=== PATIENT | female | born 1985 | race Asian ===

== ENCOUNTER 2020-07-15 20:37 | Inpatient (IN) ==
--- NOTE | 2020-07-15 20:48 | History & Physical Report ---
Date of Service July 15, 2020 Assessment & Plan (1) Supervision of elderly multigravida, antepartum: Admit to L&D. EFM/toco. Labs. IV. Patient would like epidural. She is aware she is progressing quickly, hopefully will have time for this. History of Present Illness Chief Complaint: labor Primary Care Provider: NO PCP 34yo @ 39 6/7, spontaneous labor. +FM, has had vaginal spotting worsening prior to arrival, no ROM complicated by advanced maternal age. Allergies Allergy/AdvReac Type Severity Reaction Status Date / Time No Known Allergies Allergy Verified 07/11/20 11:52 Home Medications Medication Instructions Recorded Confirmed Type prenat.vits,anjelica,bdq-[id number] 1 tab PO DAILY 05/16/20 07/11/20 History Patient History Medical History (Updated 06/24/20 @ 07:50 by Jose Kulkarni Jr, MD, FACOG) Abnormal biochemical finding on screening of mother, antepartum Encounter for supervision of normal in multigravida, antepartum Social History (Updated 05/16/20 @ 10:06 by Tata Smith) marital status: marital status details: shannan [phone] Current Living Situation: Spouse Current Living Situation Comment: lives with spouse and daughter, current occupational status: unemployed Review of Systems All systems reviewed & are unremarkable except as noted in HPI & below Physical Exam Physical Exam: SVE 9/100/0 Constitutional: WD/WN, vitals as above Respiratory: normal respiratory effort, lungs clear to auscultation no respiratory distress Cardiovascular: Rate/Rhythm: regular rate and regular rhythm Gastrointestinal (Abdomen): Inspection/Auscultation: abdomen normal to inspection Percussion/Palpation: abdomen soft; abdomen nontender Gravid. No s/s chorio or abruption. Skin: no rashes, warm and dry Psychiatric: A+Ox3, euthymic affect Results & Data ([facility]) Vital Signs (Past 12 Hours) Vital Signs Pulse BP 07/15/20 20:44 88 115/73 Monitoring External Monitor FHT Cat 1 [place] Q 4-5 Coding Level of Care Code None Diagnoses Supervision of elderly multigravida, antepartum O09.529
[2020-07-15] MEDS: LACTATED RINGER'S 1,000 ML IV PRN ×2 (20:52→22:03)
[2020-07-15 21:19] LABS: Hemoglobin 11.4 g/dL (12.0-16.0); Mean Corpuscular Hemoglobin 31.5 pg (25-34); Mean Corpuscular Hgb Conc 34.5 g/dL (32-36); Mean Corpuscular Volume 91.2 fL (80-100); Mean Platelet Volume 8.8 fL (7.4-10.4); Platelet Count 256 K/uL (130-400); RDW Coefficient of Variation 13.2 % (11.5-14.5); RDW Standard Deviation 43.8 fL (36.4-46.3); Red Blood Count 3.62 M/uL (4.2-5.4); White Blood Count 9.56 K/uL (4.8-10.8)
[2020-07-15] MEDS ORDERED: ePHEDrine sulfate 50 MG/ML AMP ONE (21:28)
[2020-07-15] MEDS ORDERED: SODIUM CHLORIDE 0.9% INJ 10 ML VIAL ONE (21:28)
[2020-07-15] MEDS ORDERED: fentaNYL citrate 100 MCG/2 ML VIAL ONE (21:29)
[2020-07-15] MEDS ORDERED: BUPIVACAINE 0.25% 30 ML VIAL ONE (21:29)
[2020-07-15] MEDS ORDERED: fentaNYL 2MCG/ML ROPIVACAINE 1.25MG/ML 100 ML BAG EPI ONE (21:31)
[2020-07-15] MEDS ORDERED: ePHEDrine sulfate 50 MG/ML AMP IV PRN (21:36)
[2020-07-15] MEDS ORDERED: ONDANSETRON INJ 2 MG/ML 2 ML VIAL IV PRN (21:36)
[2020-07-15] MEDS ORDERED: NALOXONE HCL 0.4 MG/1 ML VIAL/CARP IV PRN (21:36)
[2020-07-15] MEDS ORDERED: NALOXONE HCL 1 MG in SODIUM CHLORIDE 0.9% 1000ML 1,000 ML IV PRN (21:36)
[2020-07-15] MEDS ORDERED: diphenhydrAMINE 50 MG/ML VIAL IV PRN (21:36)
[2020-07-15] MEDS ORDERED: fentaNYL 2MCG/ML ROPIVACAINE 1.25MG/ML 100 ML BAG EPI PRN (21:36)
--- NOTE | 2020-07-15 21:38 | Anesthesiology Consultation ---
Date of Service July 15, 2020 Covid 19 negative today. Assessment & Plan Chart Review Chart Review: Patient NOT seen in Pre Admission Testing and Acceptable Risk for Labor Epidural Consults Requested none ASA ASA2 Proposed Anesthesia Anesthesia Type: Labor Epidural and CSE Risk / Benefits Reviewed With: PT / POA / Parent / Guardian, Accepts Plan and Informed Consent Obtained History Height/Weight Height: 5 ft 2.99 in Weight: 65.771 kg Allergies Allergy/AdvReac Type Severity Reaction Status Date / Time No Known Allergies Allergy Verified 07/15/20 20:57 Medications Home Medications Medication Instructions Recorded Confirmed Last Taken prenat.vits,anjelica,[id number]-[id number] 1 tab PO DAILY 05/16/20 07/15/20 Unknown Active Medications Generic Name Dose Route Start Last Admin Trade Name Freq PRN Reason Stop Dose Admin Lactated Ringer's 1,000 mls @ 125 mls/hr 07/15/20 20:43 07/15/20 20:52 Lr IV 07/17/20 20:42 999 mls/hr .Q8H PRN Administration L&D Protocol Protocol NPO Date Last Intake of Fluids: 07/15/20 Time Last Intake of Fluids: 14:00 Date Last Intake of Solids: 07/15/20 Time Last Intake of Solids: 14:00 Past Medical History Medical History Abnormal biochemical finding on screening of mother, antepartum Encounter for supervision of normal in multigravida, antepartum Exercise / Class Metabolic Activity II 4-5 Yardwork/Stairs/Walk up hill Past Anesthesia History No Hx of Anesthesia Complications and No Family Hx of Anesthesia Complications History of PONV No Hx of PONV and No Hx of Motion Sickness Social History Smoking Status: Never smoker Hx Alcohol Use: No Hx Substance Use: No substance use type: does not use Review of Systems no chest pain or sob Physical Exam Vital Signs Last Vital Signs Temp 36.5 C 07/15/20 21:04 Pulse 88 07/15/20 21:33 Resp 18 07/15/20 21:04 BP 115/73 07/15/20 21:04 Pulse Ox 98 07/15/20 21:33 ENMT Mouth: no TMJ abnormality Thyromental Distance: > or= 3.5 Finger Breadths Mallampati Class: II Neck normal visual inspection Respiratory normal respiratory effort Auscultation: lungs clear to auscultation bilaterally Cardiovascular Rate/Rhythm: regular rate and regular rhythm Musculoskeletal Spine: normal cervical ROM Neurologic moves all extremities Psychiatric Orientation: alert and oriented x 3 Testing Laboratory Results 07/15/20 21:12
--- NOTE | 2020-07-15 22:30 | Labor Progress Brief Note ---
Date of Service July 15, 2020 Subjective Patient is comfortable with epidural. FHT Cat 1 [place] Q 2 SVE 9.5/100/0 (anterior lip) AROM clear fluid. Anticipate . Assessment & Plan Admission and Anticipated Discharge Date Admission Date: July 15, 2020 Results & Data ([facility]) Vital Signs (Past 12 Hours) Vital Signs Temp Pulse Resp BP Pulse Ox 07/15/20 22:28 83 116/67 98 07/15/20 22:23 77 97 07/15/20 22:21 84 113/63 07/15/20 22:18 72 98 07/15/20 22:15 75 109/58 L 07/15/20 22:13 78 99 07/15/20 22:10 76 106/61 07/15/20 22:08 81 99 07/15/20 22:05 78 110/65 07/15/20 22:03 86 98 07/15/20 22:00 78 113/64 07/15/20 21:58 77 114/65 99 07/15/20 21:56 76 117/66 07/15/20 21:54 80 115/64 07/15/20 21:53 81 98 07/15/20 21:51 87 119/67 07/15/20 21:48 93 H 98 07/15/20 21:43 103 H 98 07/15/20 21:38 90 99 07/15/20 21:33 88 98 07/15/20 21:04 36.5 C 88 18 115/73 07/15/20 20:44 36.5 C 88 18 115/73 Coding Level of Care Code None
[2020-07-16] MEDS: OXYTOCIN 30 UNITS/500 ML BAG IV PRN ×2 (00:05→00:41)
--- NOTE | 2020-07-16 00:52 | Delivery Summary ---
Vaginal Delivery Summary Date of Service July 16, 2020 Vaginal Delivery Summary [facility] Vaginal Delivery Summary: Pre-delivery diagnoses: 34yo @ 40 0/7 Post-delivery diagnoses: same Procedure: spontaneous vaginal delivery Surgeon: Vanessa Bedoya DO Complications: none Findings: Viable male . Apgars: 8/9. Weight pending, please see nursery records. Estimated blood loss: 400ml Description of delivery: The patient progressed to complete with epidural anesthesia. She then began to push. She spontaneously vaginally delivered a viable from the cephalic presentation. The head delivered in ANNETTE position. The anterior shoulder delivered, followed by the posterior shoulder, followed by the body. The baby was placed on mother's abdomen and a spontaneous cry was heard. Delayed cord clamping was employed, and the cord was doubly clamped and cut. Cord blood was obtained. The placenta was delivered spontaneously intact with a 3-vessel cord. The uterus and vagina were swept of clots and debris. IV pitocin was given. The uterus became firm. The cervix, vagina, and perineum were inspected and a 2nd degree perineal lacerations was noted and repaired with 3-0 vicryl in standard fashion. There was a small area of bleeding at the anterior lip of the cervix - likely because the anterior cervical lip was swollen. Figure of eight suture of 3-0 vicryl placed, obtained hemostasis. Excellent hemostasis was observed. The mother and baby are recovering in stable and good condition in the room. Sponge, needle and instrument counts were correct x 2. Vanessa Bedoya DO [facility] Vaginal Delivery Charge Vaginal Delivery Codes: 92167 global code for the antepartum, delivery, and post- Delivery Type Details: [facility]
[2020-07-16] MEDS ORDERED: bisacodyL 10 MG SUPP PR PRN (01:14)
[2020-07-16] MEDS ORDERED: HYDROCORTISONE ACETATE 25 MG SUPP PR PRN (01:14)
[2020-07-16] MEDS ORDERED: DIPHTHERIA/TETANUS/PERTUSSIS 0.5 ML SYR/VIAL IM ONE (01:14)
[2020-07-16] MEDS ORDERED: OXYTOCIN 30 UNITS/500 ML BAG IV PRN (01:14)
[2020-07-16] MEDS ORDERED: SUPERCREAM 0.870% 15 GM JAR EXT PRN (01:14)
[2020-07-16] MEDS ORDERED: BENZOCAINE 20% AER SPR 82.5 GM CAN EXT PRN (01:14)
[2020-07-16] MEDS ORDERED: oxyCODONE/ACETAMINOPHEN 5mg/325mg TAB PO PRN (01:14)
[2020-07-16] MEDS ORDERED: METHYLERGONOVINE MALEATE 0.2 MG/ML AMP IM ONE (01:14)
[2020-07-16] MEDS ORDERED: ACETAMINOPHEN 325 MG TAB PO PRN (01:14)
[2020-07-16] MEDS: IBUPROFEN 600 MG TAB PO PRN ×2 (07:25→21:15)
[2020-07-16] MEDS: DOCUSATE SODIUM 100 MG CAP PO SCH ×2 (07:25→21:16)
[2020-07-16] MEDS: PRENATAL VITAMIN 1 TAB PO SCH (07:25)
--- NOTE | 2020-07-16 14:51 | Anesthesia Procedure Note ---
Date of Service July 16, 2020 Anesthesia Post Epidural Note Vital Signs Vital Signs: Temp Pulse Resp BP Pulse Ox 36.7 C 102 H 18 96/62 L 98 07/16/20 12:05 07/16/20 12:05 07/16/20 12:05 07/16/20 12:05 07/16/20 12:05 Pain Intensity Bilateral Perineal: Pain Intensity: 2 Notes Mental Status: alert / awake / arousable Patient Amnestic to Procedure: No Nausea / Vomiting: adequately controlled Pain: adequately controlled Airway Patency, RR, SpO2: stable & adequate BP & HR: stable & adequate Hydration State: stable & adequate Neuraxial Anesthesia: was administered and sensory block is resolving Anesthetic Complications: no major complications apparent and Pt Satisfied with anesthetic care Epidural: Removed without complications and With tip intact
[2020-07-17 06:29] LABS: Hematocrit (blood only) 28.6 % (37-47); Hemoglobin 9.5 g/dL (12.0-16.0)
--- NOTE | 2020-07-17 08:14 | Obstetrical Progress Note ---
Date of Service July 17, 2020 Assessment & Plan (1) Encounter for care and examination after delivery: Doing well. Post day 2. Stable for discharge Subjective Ambulation: ambulating normally Voiding: no voiding problems Passing Gas:: Yes Diet Tolerance:: regular diet Lochia:: Moderate Physical Exam Constitutional WD/WN, vitals as above Respiratory normal respiratory effort; no respiratory distress and no labored breathing Gastrointestinal (Abdomen) Inspection/Auscultation: abdomen normal to inspection; abdomen not distended Percussion/Palpation: abdomen soft; abdomen nontender, no guarding and abdomen not rigid Genitourinary OB Exam Abdomen: + fundal height Fundus: + firm and + relation to umbilicus (Below); not tender and not boggy Results & Data ([facility]) Vital Signs (Past 12 Hours) Vital Signs Temp Pulse Resp BP 07/17/20 01:25 36.4 C L 69 16 98/61 L
[2020-07-17] MEDS: IBUPROFEN 600 MG TAB PO PRN (09:36)
[2020-07-17] MEDS: PRENATAL VITAMIN 1 TAB PO SCH (09:36)
[2020-07-17] MEDS: DOCUSATE SODIUM 100 MG CAP PO SCH (09:37)
[2020-07-17] MEDS ORDERED: bisacodyL 5 MG TABEC PO SCH (20:00)
== END 2020-07-17 17:00 | disposition home or self-care (01) | DRG 807 ==
LOC: OPB 20:37 → 4S1 20:39 → 4S2 07-16 03:14